=== PATIENT | female | born 1950 | race Hispanic/Latino ===

== ENCOUNTER 2018-06-30 21:31 | Emergency (ER) | payer MEDICARE, OTHER ==
[2018-06-30 21:42] VITALS: BP 148/74; PULSE 72; RESP 15; TEMP 97.7; O2SAT 99
[2018-06-30] MEDS ORDERED: Lidocaine 1% Inj (20ml) INFIL ONE (22:21)
[2018-06-30] MEDS ORDERED: Lidocaine 1% Inj (20ml) ONE (22:24)
--- NOTE | 2018-06-30 23:01 | ED PDOC ---
Upper Extremity Pain/Injury Time Seen by Provider: 06/30/18 22:05 Chief Complaint (Nursing): Abnormal Skin Integrity History Per: Patient Additional Complaint(s): Pt. states earlier today she accidentally cut her L hand with a piece of glass. Denies numbness, tingling, FB sensation. Past Medical History Reviewed: Historical Data, Nursing Documentation, Vital Signs Vital Signs: Last Vital Signs Temp 97.7 F 06/30/18 21:39 Pulse 72 06/30/18 21:39 Resp 15 06/30/18 21:39 BP 148/74 06/30/18 21:39 Pulse Ox 99 06/30/18 21:39 - Family History Family History: States: No Known Family Hx - Allergies Allergies/Adverse Reactions: Allergies Allergy/AdvReac Type Severity Reaction Status Date / Time Penicillins Allergy RASH Verified 06/30/18 21:41 Review of Systems ROS Statement: Except As Marked, All Systems Reviewed And Found Negative Musculoskeletal: Positive for: Hand Pain Physical Exam - Physical Exam Appears: Positive for: Well, Non-toxic, No Acute Distress Skin: Positive for: Normal Color, Warm. Negative for: Rash Pulses-Radial (L): 2+ Pulses-Radial (R): 2+ Extremity: Positive for: Other (L hand on dorsal surface of 1st IP joint there is a 1.5cm very superficial flap laceration without active bleeding; FROM actively of L thumb; cap refill < 2 seconds of L thumb) Neurologic/Psych: Positive for: Alert, Oriented (x3) - ECG O2 Sat by Pulse Oximetry: 99 Procedures - Time-Out Type of Procedure: laceration repair Site of Procedure: L hand Correct Patient: Yes Correct Procedure: Yes Correct Site Marked: Yes - Laceration/Wound Repair Laceration Wound Length (cm): 1.5 Wound's Depth, Shape: superficial, irregular, flap Wound Explored: no foreign body removed Irrigated w/ Saline (ccs): 200 Betadine Prep?: Yes Anesthesia: 1% Lidocaine Volume Anesthetic (ccs): 3 Wound Repaired With: Sutures Suture Size/Type: 5:0, proline Number of Sutures: 5 Layer Closure?: No Wound Complexity: Simple Sterile Dressing Applied?: Yes Disposition - Clinical Impression Clinical Impression: Hand laceration - Patient ED Disposition Is Patient to be Admitted: No - Disposition Referrals: [facility] [place] [Outside] Disposition: Routine/Home Disposition Time: 22:50 Condition: STABLE Additional Instructions: SUTURE REMOVAL IN 7 DAYS JARETH HANNAH, thank you for letting us take care of you today. Your provider was Jimmy Barnett MD and you were treated for LEFT HAND FINGER LACERATION. The emergency medical care you received today was directed at your acute symptoms. If you were prescribed any medication, please fill it and take as directed. It may take several days for your symptoms to resolve. Return to [facility] Emergency Department if your symptoms worsen, do not improve, or if you have any other problems. Please contact your doctor or call one of the physicians/clinics you have been referred to that are listed on the Patient Visit Information form that is included in your discharge packet. Bring any paperwork you were given at discharge with you along with any medications you are taking to your follow up visit. Our treatment cannot replace ongoing medical care by a primary care provider outside of the emergency department. Thank you for allowing the [facility] team to be part of your care today. If you had an X-Ray or CT scan: A Radiologist will review the ED reading if any change in treatment is needed we will contact you. If you had a blood, urine, or wound culture: It will take several days for the results, if any change in treatment is needed we will contact you. If you had an STI test: It will take 48 hours for the results. Please call after 1 week if you have not heard back. Instructions: Laceration Repair With Stitches (DC) Forms: [facility] ([place])
== END 2018-06-30 22:59 | disposition home or self-care (01) ==
LOC: H.ER 21:31
DX: S61.412A Laceration without foreign body of left hand, initial encounter (principal); W25.XXXA Contact with sharp glass, initial encounter; Z88.0 Allergy status to penicillin